=== PATIENT | male | born 1975 | race Caucasian/White ===

== ENCOUNTER 2022-11-26 17:49 | Inpatient (IN) ==
[2022-11-26 19:25] LABS: Appearance Urine Clear (Clear); Bilirubin Urine Negative (Negative); Blood Urine Negative (Negative); Color Urine Yellow; Glucose Urine UA Negative (Negative); Ketones Urine Negative (Negative); Leukocyte Esterase Urine Negative (Negative); Nitrite Urine Negative (Negative); Protein Urine Negative (Negative); Urobilinogen Urine Negative (Negative); pH Urine 6.5 (4.5-7.5)
[2022-11-26 19:39] LABS: Basophils # (auto) 0.02 K/uL (0-0.2); Basophils % (auto) 0.2 %; Eosinophils # (auto) 0.06 K/uL (0-0.50); Eosinophils % (auto) 0.6 %; Hematocrit (blood only) 40.3 % (42.0-52.0); Hemoglobin 13.7 g/dl (14.0-18.0); Immature Granulocytes # (auto) 0.04 K/uL (0.01-0.20); Immature Granulocytes % (auto) 0.4 %; Lymphocytes # (auto) 1.03 K/uL (1.2-3.4); Lymphocytes % (auto) 9.7 %; Mean Corpuscular Volume 88.2 fL (80.0-100.0); Mean Platelet Volume 9.8 fL (9.4-12.4); Monocytes # (auto) 0.85 K/uL (0.11-0.59); Neutrophils # (auto) 8.64 K/uL (1.40-6.50); Neutrophils % (auto) 81.1 %; Platelet Count 176 K/uL (130-400); RDW Coefficient of Variation 12.2 % (11.5-14.5); RDW Standard Deviation 38.9 fL (36.4-46.3); Red Blood Count 4.57 M/uL (4.70-6.10); White Blood Count 10.64 K/ul (4.8-10.8)
[2022-11-26 19:47] LABS: Albumin Globulin Ratio 1.7 (0.9-2); Albumin Level 4.8 gm/dl (3.4-5.0); BUN Creatinine Ratio 22.2 (10-20); Bilirubin,Total 1.3 mg/dl (0.2-1.0); Calcium 9.6 mg/dl (8.6-10.3); Creatinine Clr Calc Pharmacy 138.2 ml/min; Est GFR (African American) 122.7 ml/min; Est GFR (Non-African American) 105.8 ml/min; Globulin 2.8 gm/dl (2.5-4.0); Potassium 4.1 mmol/L (3.5-5.1); Total Protein 7.6 gm/dl (6.0-8.3)
--- NOTE | 2022-11-26 19:58 | Emergency Department Note ---
Impression & Plan Diverticulitis of colon with perforation, Abdominal pain ED Provider Note NAME: FORD KRAMER AGE: 47 SEX: M : 1975 ARRIVES VIA: Walk-In INFORMANT: Patient, ED PROVIDER(S): Paco Gastelum MD CHIEF COMPLAINT: Abdominal pain MEDICAL DECISION MAKING: Patient presents due to concern for abdominal David which began yesterday but has been persistent in the left lower quadrant. IV was established blood work was obtained the patient did receive IV morphine IV fluids and IV Zofran. CT abdomen pelvis does show concern for diverticulitis with associated contained microperforation which I did discuss with the on-call radiologist Dr. Norris. Given this concern patient was ordered Zosyn. The patient's vital signs and b lood work are reassuring at this time. I did discuss the patient's case with on-call general surgery Dr. Capellan who agreed with current plan of care and let something were to change she does not believe that the patient requires emergent surgery at this time. Patient's blood work shows a normal white counts mild anemia hemoglobin of 13.7 with normal platelet count. Kidney function is unremarkable. Mild elevation in bilirubin at 1.3. Other LFTs are unremarkable with normal lipase. I did speak with the on-call hospital service Dr. Pulido and the patient was admitted to the medicine service Prior /Outside records reviewed: None Differential diagnosis: Diverticulitis, kidney stone, constipation, UTI, enteritis, volvulus, bowel obstruction among others were considered Diagnostics, as interpreted by me: ECG: None Cardiac monitoring: An order was placed for continuous cardiac monitoring. The monitor shows a rate of 78 with sinus rhythm. Patient was placed on pulse oximetry Medical decision rules: None Imaging studies: See below I informally reviewed the patient's CT abdomen pelvis which does show perforated diverticulum. HPI: Patient presents due to concern for abdominal pain which began yesterday has been persistent located left lower quadrant. It is worse with palpation. No falls or trauma. Patient did take some Aleve but without significant improvement in symptoms. Patient did recently move and his daughter into college but denies any other strenuous or heavy lifting no obvious bulges or masses or hernias. Patient denies any testicular pain or swelling. No history of kidney stones and no prior history of any abdominal surgeries. Patient denies any chest pains or shortness of breath. Patient denies any associated nausea or vomiting. No blood in the urine or stool. PAST MEDICAL HISTORY: See Below PAST SURGICAL HISTORY: See Below SOCIAL HISTORY: See Below HOME MEDICATIONS: See Below ALLERGIES: See Below VITALS: See Below PHYSICAL EXAMINATION: GENERAL: NAD, non-toxic. EYE EXAM: Normal conjunctiva. PERRL, no anisocoria and EOM's grossly intact w/o pain. OROPHARYNX: Moist mucus membranes, grossly normal dentition. NECK: Supple, no nuchal rigidity, no adenopathy, non-tender. No signs of meningismus. FROM of the neck with good chin to chest and neck extension. No stridor. LUNGS: Clear to auscultation. Normal chest wall mechanics. HEART: NSR, no MRG. ABDOMEN: Abdomen soft, right lower quadrant and left lower quadrant pain, no ma sses. BACK: No CVA TTP. SKIN: No rashes and no bruising. UPPER EXTREMITIES: Upper extremities are grossly normal. LOWER EXTREMITIES: Grossly normal, no edema. NEURO EXAM: A&O x3, cranial nerves II-XII grossly intact, normal speech, moves all 4 extremities. Past Med/Surg History Medical History GERD (gastroesophageal reflux disease) Surgical History No significant past surgical history Family History Other Diabetes Dyslipidemia Hypertension Prostate cancer Social History Smoking Status: Never smoker Tobacco Type: Smokeless Tobacco (Dip or Chew) Do You Dip or Chew Tobacco: Yes; Tobacco Cessation Education Requested by Patient: No Hx Alcohol Use: No Hx Substance Use: No Preferred Language: Nepalese Communication Ability: Effective Counseling Director Required: No Beliefs That Will Affect Care: None marital status: Current Living Situation: Spouse current occupational status: employed Other Information That Helps Us Care for You: No Feels Safe at Home: Yes Safety Concerns: Feels Safe At This Time Assistive Devices: None Allergies Allergies Allergy/AdvReac Type Severity Reaction Status Date / Time No Known Allergies Allergy Unverified 11/26/22 21:23 Home Meds Home Medications Medication Instructions Recorded Confirmed naproxen sodium 220 mg tablet 220 mg PO Q12H PRN Pain 11/26/22 11/26/22 (Aleve) Results & Data (ED) Vital Signs Vital Signs - 24 hr 11/26/22 18:04 11/26/22 19:56 11/26/22 21:00 Temperature 36.6 C Temperature Source Temporal Artery Scan Pulse Rate 106 H Pulse Rate [Right Radial] Respiratory Rate 20 17 Respiratory Effort / Characteristics Non-Labored Non-Labored Respiratory Depth Normal Normal Respiratory Pattern Regular Blood Pressure 145/86 H Blood Pressure [Left Arm] Blood Pressure Mean 105 Blood Pressure Mean [Left Arm] Pulse Oximetry 95 96 Oxygen Delivery Method Room Air Room Air Room Air Sepsis Recent Fever Within 48 Hours No Sepsis New/Unexplained Change in Mental Status No Sepsis Action Taken by Nursing No Action Required 11/26/22 21:31 Temperature Temperature Source Pulse Rate Pulse Rate [Right Radial] 97 H Respiratory Rate 16 Respiratory Effort / Characteristics Respiratory Depth Respiratory Pattern Blood Pressure Blood Pressure [Left Arm] 139/87 Blood Pressure Mean Blood Pressure Mean [Left Arm] 104 Pulse Oximetry 93 Oxygen Delivery Method Room Air Sepsis Recent Fever Within 48 Hours Sepsis New/Unexplained Change in Mental Status Sepsis Action Taken by Prison Medications Current Medication List: was personally reviewed by me Laboratory Data Attestation: I reviewed the patient's lab results. 11/26/22 18:40 11/26/22 18:40 Lab Results 11/26/22 11/26/22 11/26/22 Range/Units 18:40 18:40 18:40 WBC 10.64 (4.8-10.8) K/ul RBC 4.57 L (4.70-6.10) M/uL Hgb 13.7 L (14.0-18.0) g/dl Hct 40.3 L (42.0-52.0) % MCV 88.2 (80.0-100.0) fL MCH 30.0 (25.0-34.0) pg MCHC 34.0 (32.0-36.0) g/dL RDW Std Deviation 38.9 (36.4-46.3) fL RDW Coeff of Joe 12.2 (11.5-14.5) % Plt Count 176 (130-400) K/uL MPV 9.8 (9.4-12.4) fL Immature Gran % (Auto) 0.4 % Neut % (Auto) 81.1 % Lymph % (Auto) 9.7 % [place] % (Auto) 8.0 % Eos % (Auto) 0.6 % Baso % (Auto) 0.2 % Neut # (Auto) 8.64 H (1.40-6.50) K/uL Lymph # (Auto) 1.03 L (1.2-3.4) K/uL [place] # (Auto) 0.85 H (0.11-0.59) K/uL Eos # (Auto) 0.06 (0-0.50) K/uL Baso # (Auto) 0.02 (0-0.2) K/uL Immature Gran # (Auto) 0.04 (0.01-0.20) K/uL Sodium 137 (136-145) mmol/L Potassium 4.1 (3.5-5.1) mmol/L Chloride 100 (98-107) mmol/L Carbon Dioxide 29 (21-32) mmol/L Anion Gap 8 (3-11) BUN 18 (6-23) mg/dl Creatinine 0.81 (0.6-1.4) mg/dl Est Cr Clr Drug Dosing 138.2 ml/min Est GFR ( Amer) 122.7 ml/min Est GFR (Non-Af Amer) 105.8 ml/min BUN/Creatinine Ratio 22.2 H (10-20) Glucose 92 (70-99(Fasting)) mg/dl Lactate 1.3 (0.4-2.0) mmol/L Calcium 9.6 (8.6-10.3) mg/dl Magnesium 1.9 (1.7-2.4) mg/dl Total Bilirubin 1.3 H (0.2-1.0) mg/dl AST 14 (13-39) U/L ALT 21 (7-52) U/L Alkaline Phosphatase 58 (34-104) U/L Total Protein 7.6 (6.0-8.3) gm/dl Albumin 4.8 (3.4-5.0) gm/dl Globulin 2.8 (2.5-4.0) gm/dl Albumin/Globulin Ratio 1.7 (0.9-2) Lipase 31 (11-82) U/L Administered Medications Enoxaparin Sodium (Enoxaparin Inj 40 Mg/0.4 Ml Syr) 40 mg SQ QAM ARABELLA Stop: 12/27/22 08:59 Last Admin: 11/27/22 09:50 Dose: 40 mg Documented By: RISHABH Acetaminophen (Ofirmev) 1,000 mg in 100 mls @ 400 mls/hr IV Q8H PRN PRN Reason: fever/pain Stop: 11/29/22 23:10 Last Infusion: 11/27/22 02:09 Dose: 0 mls/hr Documented By: Admin: 11/27/22 01:22 Dose: 400 mls/hr Documented By: LENNY Piperacillin Sod/Tazobactam (Sod 4.5 gm/ Dextrose) 120 mls @ 30 mls/hr IV Q8H [facility]; Protocol Stop: 12/07/22 03:59 Last Admin: 11/27/22 12:53 Dose: 30 mls/hr Documented By: Infusion: 11/27/22 07:50 Dose: 0 mls/hr Documented By: Admin: 11/27/22 03:09 Dose: 30 mls/hr Documented By: LENNY Dextrose/Sodium Chloride (D5w And Nss) 1,000 mls @ 100 mls/hr IV .Q10H ARABELLA Stop: 12/27/22 07:59 Last Admin: 11/27/22 09:49 Dose: 100 mls/hr Documented By: RISHABH Pantoprazole Sodium 40 mg/ (Syringe) 10 mls @ 5 mls/min IV DAILY@1100 ARABELLA Stop: 12/27/22 10:59 Last Admin: 11/27/22 09:49 Dose: 5 mls/min Documented By: RISHABH Ketorolac Tromethamine (Ketorolac Tromethamine 15 Mg/Ml Vial) 15 mg IV Q6H PRN PRN Reason: Pain Stop: 12/01/22 23:10 Last Admin: 11/27/22 09:49 Dose: 15 mg Documented By: RISHABH Discontinued Medications Hydromorphone HCl (Hydromorphone Inj 0.5 Mg/0.5 Ml Syr) 0.5 mg IV Q4H PRN PRN Reason: Pain Stop: 12/11/22 02:22 Last Admin: 11/27/22 10:27 Dose: 0.5 mg Documented By: RISHABH Sodium Chloride (Nss 1000ml) 500 mls @ 999 mls/hr IV .Q31M ONE Stop: 11/26/22 21:20 Last Infusion: 11/26/22 21:46 Dose: 999 mls/hr Documented By: Admin: 11/26/22 21:12 Dose: 999 mls/hr Documented By: PAULINE Piperacillin Sod/Tazobactam Sod (Zosyn) 4.5 gm in 120 mls @ 240 mls/hr IV NOW ONE Stop: 11/26/22 21:37 Last Infusion: 11/26/22 22:06 Dose: 240 mls/hr Documented By: Admin: 11/26/22 21:31 Dose: 240 mls/hr Documented By: PAULINE Dextrose/Sodium Chloride (D5w And Nss) 1,000 mls @ 100 mls/hr IV .Q10H ONE Stop: 11/27/22 07:53 Last Infusion: 11/27/22 09:56 Dose: 0 mls/hr Documented By: Admin: 11/26/22 22:39 Dose: 100 mls/hr Documented By: PAULINE Ioversol (Optiray 320 100ml) 90 ml IV ONCE ONE Stop: 11/26/22 20:10 Last Admin: 11/26/22 20:09 Dose: 90 ml Documented By: LEEANNA Ketorolac Tromethamine (Ketorolac Tromethamine 15 Mg/Ml Vial) 15 mg IV NOW ONE Stop: 11/26/22 23:06 Last Admin: 11/26/22 23:30 Dose: 15 mg Documented By: CALLY Morphine Sulfate (Morphine Sulfate 10 Mg/Ml Carp/Vial) 6 mg IV NOW STA Stop: 11/26/22 20:50 Last Admin: 11/26/22 21:13 Dose: 6 mg Documented By: PAULINE Ondansetron HCl (Ondansetron Inj 2 Mg/Ml 2 Ml Vial) 4 mg IV NOW STA Stop: 11/26/22 20:51 Last Admin: 11/26/22 21:13 Dose: 4 mg Documented By: PAULINE Imaging Data Radiologist's Impression: Abdomen/Pelvis CT 11/26/22 18:32 CR Exam(s): CT ABDOMEN + PELVIS With Contrast IV Amt: 90 ml optiray 320 EXAM: CT Abdomen and Pelvis With Intravenous Contrast CLINICAL HISTORY: Reason for exam: LLQ abd pain. TECHNIQUE: Axial computed tomography images of the abdomen and pelvis with intravenous contrast. Automated exposure control was utilized for the study. A dose lowering technique was utilized adhering to the principles of ALARA. CONTRAST: Patient received 90 ml optiray 320 of IV contrast COMPARISON: None. FINDINGS: Lung bases: Unremarkable. No mass. No consolidation. ABDOMEN: Liver: Unremarkable. No mass. Gallbladder and bile ducts: Unremarkable. No calcified stones. No ductal dilation. Pancreas: Unremarkable. No mass. No ductal dilation. Spleen: Unremarkable. No splenomegaly. Adrenals: Unremarkable. No mass. Kidneys and ureters: Parapelvic cysts in the left kidney. No hydronephrosis. Stomach and bowel: Acute diverticulitis of the descending colon with trace adjacent pneumoperitoneum compatible with perforation. No obstruction. PELVIS: Appendix: No findings to suggest acute appendicitis. Bladder: Unremarkable. No mass. Reproductive: Unremarkable as visualized. ABDOMEN and PELVIS: Intraperitoneal space: See above. Bones/joints: Degenerative change of the spine. No acute fracture. No dislocation. Soft tissues: Unremarkable. Vasculature: Unremarkable. No abdominal aortic aneurysm. Lymph nodes: Unremarkable. No enlarged lymph nodes. IMPRESSION: Acute diverticulitis of the descending colon with trace adjacent pneumoperitoneum compatible with perforation. Communications: Call Doctor Pneumoperitoneum, new or unexpected Electronically signed by: Azael Norris MD 11/26/22 21:01 PM Discharge Plan Visit Data Chief Complaint: Abdominal Pain Stated Complaint: ABD PAIN ED Provider: Paco Gastelum Discharge Problem: Diverticulitis of colon with perforation, Abdominal pain Patient Disposition: Admitted As Inpatient Discharge Instructions Interventions: ED Discharge Assessment Last Done: 11/27/22 00:59
[2022-11-26] MEDS ORDERED: OPTIRAY 320 100ml IV ONE (20:09)
[2022-11-26] MEDS ORDERED: MoRPHine SULFATE 10 MG/ML CARP/VIAL IV STA (20:49)
[2022-11-26] MEDS ORDERED: ONDANSETRON INJ 2 MG/ML 2 ML VIAL IV STA (20:50)
[2022-11-26] MEDS ORDERED: SODIUM CHLORIDE 0.9% 1000ML 500 ML IV ONE (20:50)
--- NOTE | 2022-11-26 21:02 | CT Scan Report ---
Exam(s): CT ABDOMEN + PELVIS With Contrast IV Amt: 90 ml optiray 320 EXAM: CT Abdomen and Pelvis With Intravenous Contrast CLINICAL HISTORY: Reason for exam: LLQ abd pain. TECHNIQUE: Axial computed tomography images of the abdomen and pelvis with intravenous contrast. Automated exposure control was utilized for the study. A dose lowering technique was utilized adhering to the principles of ALARA. CONTRAST: Patient received 90 ml optiray 320 of IV contrast COMPARISON: None. FINDINGS: Lung bases: Unremarkable. No mass. No consolidation. ABDOMEN: Liver: Unremarkable. No mass. Gallbladder and bile ducts: Unremarkable. No calcified stones. No ductal dilation. Pancreas: Unremarkable. No mass. No ductal dilation. Spleen: Unremarkable. No splenomegaly. Adrenals: Unremarkable. No mass. Kidneys and ureters: Parapelvic cysts in the left kidney. No hydronephrosis. Stomach and bowel: Acute diverticulitis of the descending colon with trace adjacent pneumoperitoneum compatible with perforation. No obstruction. PELVIS: Appendix: No findings to suggest acute appendicitis. Bladder: Unremarkable. No mass. Reproductive: Unremarkable as visualized. ABDOMEN and PELVIS: Intraperitoneal space: See above. Bones/joints: Degenerative change of the spine. No acute fracture. No dislocation. Soft tissues: Unremarkable. Vasculature: Unremarkable. No abdominal aortic aneurysm. Lymph nodes: Unremarkable. No enlarged lymph nodes. IMPRESSION: Acute diverticulitis of the descending colon with trace adjacent pneumoperitoneum compatible with perforation. Communications: Call Doctor Pneumoperitoneum, new or unexpected Electronically signed by: Azael Norris MD 11/26/22 21:01 PM
[2022-11-26] MEDS ORDERED: PIPERACILLIN/TAZOBACTAM 4.5 GM/120 ML BAG IV ONE (21:08)
[2022-11-26 21:45] LABS: Magnesium 1.9 mg/dl (1.7-2.4)
--- NOTE | 2022-11-26 21:46 | History & Physical Report ---
Date of Service November 26, 2022 Assessment & Plan (1) Diverticulitis of colon with perforation: (2) Abdominal pain: Plan: Patient is a 47-year-old male without significant past medical history presented ER today with complaint of abdominal pain x 1 day. In ER afebrile, P: 106, BP stable. No leukocytosis. Lactate WNL CT ABD/PELVIS: Acute diverticulitis of the descending colon with trace adjacent pneumoperitoneum compatible with perforation. In ER given 500ml NSS, Zosyn, Morphine General surgery consult Further assessment and plan per Dr Pulido. See addendum. History of Present Illness Chief Complaint: abdominal pain Primary Care Provider: Dr. Oglesby Patient is a 47-year-old male without significant past medical history presented ER today with complaint of abdominal pain x 1 day. Patient states last night started with left lower quadrant abdominal pain described as burning. He reports pain has worsened. Denies any radiation of pain. Tried OTC NSAID without relief. Denies any nausea, vomiting, diarrhea, constipation, fever/chills, diaphoresis, DALAL, dizziness, CP, SOB, cough, rhinorrhea, weakness, extremity edema, rashes, urinary symptoms. Denies history of colonoscopy. Allergies Allergy/AdvReac Type Severity Reaction Status Date / Time No Known Allergies Allergy Unverified 11/26/22 21:23 Home Medications Medication Instructions Recorded Confirmed Type naproxen sodium 220 mg tablet 220 mg PO Q12H PRN Pain 11/26/22 11/26/22 History (Aleve) Past Med/Surg History Medical History GERD (gastroesophageal reflux disease) Surgical History No significant past surgical history Family History Other Diabetes Dyslipidemia Hypertension Prostate cancer Social History Smoking Status: Never smoker Tobacco Type: Smokeless Tobacco (Dip or Chew) Do You Dip or Chew Tobacco: Yes; Tobacco Cessation Education Requested by Patient: No Hx Alcohol Use: No Hx Substance Use: No Preferred Language: Occitan Communication Ability: Effective 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 Beliefs That Will Affect Care: None marital status: Current Living Situation: Spouse current occupational status: employed Other Information That Helps Us Care for You: No Feels Safe at Home: Yes Safety Concerns: Feels Safe At This Time Assistive Devices: Glasses Review of Systems Review of Systems: All systems reviewed & are unremarkable except as noted in HPI & below Physical Exam Physical Exam: General: mild distress secondary to abdominal pain, WDWN Head: normocephalic, atraumatic Eyes: conjunctiva non-injected, anicteric ENT: normal inspection external ears, nose, mucous membranes moist Neck: supple, trachea midline Lungs: clear, no respiratory distress, no wheezing/rhonchi/rales CV: RRR, no murmur, no JVD, no pretibial edema Abd: normal BS, soft, +tenderness LLQ with guarding Ext: no cyanosis, no calf tenderness Neuro: A&O x 3, no focal deficits noted, normal affect Skin: warm, dry Results & Data Results & Data Vital Signs (Past 12 Hours) Vital Signs Temp Pulse Pulse Resp BP BP Pulse Ox 11/26/22 21:31 97 H 16 139/87 93 11/26/22 21:00 17 96 11/26/22 19:56 11/26/22 18:04 36.6 C 106 H 20 145/86 H 95 O2 Del Method 11/26/22 21:31 Room Air 11/26/22 21:00 Room Air 11/26/22 19:56 Room Air 11/26/22 18:04 Room Air Laboratory Results Short CBC 11/26/22 Range/Units 18:40 WBC 10.64 (4.8-10.8) K/ul Hgb 13.7 L (14.0-18.0) g/dl Hct 40.3 L (42.0-52.0) % Plt Count 176 (130-400) K/uL BMP 11/26/22 18:40 Sodium 137 Potassium 4.1 Chloride 100 Carbon Dioxide 29 BUN 18 Creatinine 0.81 Glucose 92 Calcium 9.6 Liver Function 11/26/22 Range/Units 18:40 Total Bilirubin 1.3 H (0.2-1.0) mg/dl AST 14 (13-39) U/L ALT 21 (7-52) U/L Alkaline Phosphatase 58 (34-104) U/L Albumin 4.8 (3.4-5.0) gm/dl Urine 11/26/22 Range/Units Unknown Urine Color Yellow Urine Appearance Clear (Clear) Urine pH 6.5 (4.5-7.5) Ur Specific [place] 1.020 (1.000-1.030) Urine Protein Negative (Negative) Urine Glucose (UA) Negative (Negative) Diagnostic Findings Abdomen/Pelvis CT 11/26/22 18:32 CR Exam(s): CT ABDOMEN + PELVIS With Contrast IV Amt: 90 ml optiray 320 EXAM: CT Abdomen and Pelvis With Intravenous Contrast CLINICAL HISTORY: Reason for exam: LLQ abd pain. TECHNIQUE: Axial computed tomography images of the abdomen and pelvis with intravenous contrast. Automated exposure control was utilized for the study. A dose lowering technique was utilized adhering to the principles of ALARA. CONTRAST: Patient received 90 ml optiray 320 of IV contrast COMPARISON: None. FINDINGS: Lung bases: Unremarkable. No mass. No consolidation. ABDOMEN: Liver: Unremarkable. No mass. Gallbladder and bile ducts: Unremarkable. No calcified stones. No ductal dilation. Pancreas: Unremarkable. No mass. No ductal dilation. Spleen: Unremarkable. No splenomegaly. Adrenals: Unremarkable. No mass. Kidneys and ureters: Parapelvic cysts in the left kidney. No hydronephrosis. Stomach and bowel: Acute diverticulitis of the descending colon with trace adjacent pneumoperitoneum compatible with perforation. No obstruction. PELVIS: Appendix: No findings to suggest acute appendicitis. Bladder: Unremarkable. No mass. Reproductive: Unremarkable as visualized. ABDOMEN and PELVIS: Intraperitoneal space: See above. Bones/joints: Degenerative change of the spine. No acute fracture. No dislocation. Soft tissues: Unremarkable. Vasculature: Unremarkable. No abdominal aortic aneurysm. Lymph nodes: Unremarkable. No enlarged lymph nodes. IMPRESSION: Acute diverticulitis of the descending colon with trace adjacent pneumoperitoneum compatible with perforation. Communications: Call Doctor Pneumoperitoneum, new or unexpected Electronically signed by: Azael Norris MD 11/26/22 21:01 PM Supervising Physician Co-Signing Physician Notes IM ATTENDING : Patient seen and examined. History obtained from patient, family, and records. Preceding documentation by Ms. Maryan Cartwright PA-C reviewed. FINAL ASSESSMENT AND PLAN as follows : Complicated diverticulitis no sepsis for now N.p.o. [facility] General Surgery consult RE complicated diverticulitis (ER provider already in touch with Dr. Capellan who recommends medical management.) DVT prophylaxis. Lovenox subcu Full code Patient PCP is Dr. Suleiman Oglesby for [facility]. Patient case signed out to [facility] upper and bottom lacer hand (Dr. Keila Martell). Text document was generated using [employer] voice recognition software. It may contain grammatical or spelling errors. Kindly contact undersigned for clarification of any documentation item in question.
[2022-11-26] MEDS ORDERED: D5W AND NSS 1,000 ML IV ONE (21:54)
[2022-11-26] MEDS ORDERED: KETOROLAC TROMETHAMINE 15 MG/ML VIAL IV ONE (23:05)
[2022-11-26] MEDS ORDERED: LORazepam 2 MG/1 ML VIAL IV PRN (23:11)
[2022-11-26] MEDS ORDERED: KETOROLAC TROMETHAMINE 15 MG/ML VIAL IV PRN (23:11)
[2022-11-26] MEDS ORDERED: PROMETHAZINE HCL 12.5 MG in SODIUM CHLORIDE 0.9% 50 ML IV PRN (23:11)
[2022-11-27] MEDS: ACETAMINOPHEN 1,000 MG/100 ML VIAL IV PRN ×2 (01:22→16:02)
[2022-11-27] MEDS ORDERED: HYDROmorphone INJ 0.5 MG/0.5 ML SYR IV PRN ×2 (02:23→11:51)
[2022-11-27] MEDS: PIPERACILLIN/TAZOBACTAM 4.5 GM in DEXTROSE 5% 100 ML IV SCH ×3 (03:09→19:57)
[2022-11-27 06:51] LABS: Basophils # (auto) 0.02 K/uL (0-0.2); Basophils % (auto) 0.2 %; Eosinophils # (auto) 0.06 K/uL (0-0.50); Eosinophils % (auto) 0.6 %; Hematocrit (blood only) 37.2 % (42.0-52.0); Hemoglobin 12.4 g/dl (14.0-18.0); Immature Granulocytes # (auto) 0.06 K/uL (0.01-0.20); Immature Granulocytes % (auto) 0.6 %; Lymphocytes # (auto) 0.78 K/uL (1.2-3.4); Lymphocytes % (auto) 7.8 %; Mean Corpuscular Hemoglobin 29.6 pg (25.0-34.0); Mean Corpuscular Hgb Conc 33.3 g/dL (32.0-36.0); Mean Corpuscular Volume 88.8 fL (80.0-100.0); Mean Platelet Volume 9.8 fL (9.4-12.4); Monocytes # (auto) 0.91 K/uL (0.11-0.59); Monocytes % (auto) 9.1 %; Neutrophils % (auto) 81.7 %; Platelet Count 141 K/uL (130-400); RDW Coefficient of Variation 12.2 % (11.5-14.5); RDW Standard Deviation 39.8 fL (36.4-46.3); Red Blood Count 4.19 M/uL (4.70-6.10); White Blood Count 10.03 K/ul (4.8-10.8)
[2022-11-27 07:03] LABS: BUN Creatinine Ratio 16.1 (10-20); Calcium 8.7 mg/dl (8.6-10.3); Creatinine Clr Calc Pharmacy 127.2 ml/min; Est GFR (African American) 119.1 ml/min; Est GFR (Non-African American) 102.8 ml/min; Potassium 4.1 mmol/L (3.5-5.1)
--- NOTE | 2022-11-27 08:23 | Surgery Consultation ---
Date of Consultation November 27, 2022 Assessment & Plan (1) Diverticulitis of colon with perforation: (2) Abdominal pain: Plan 47 lisbet-old male with no significant past medical history or abdominal surgical history presented to ED with complaint of 1 day of left sided abdominal pain wh ich progressively worsened. Afebrile, hemodynamically stable, no leukocytosis. CT scan of abd/pelvis with IV contrast showing acute descending colon diverticulitis with microperforation. Plan: Recommend conservative management with : Bowel rest, IV fluids, IV antibiotics, pain management and antiemetics as needed okay for clear liquids later today encourage ambulation continue medical management will need colonoscopy in 6-8 weeks will need total course of [address] Hillman has seen and examined pt, agrees with above. Supervising Physician Co-Signing Physician Notes I have seen and examined the patient personally and agree with the above assessment and plan. In brief, he is under 1 day history of abdominal pain but is afebrile with no leukocytosis. CT scan demonstrated diverticulitis with microperforation. We will treat him conservatively with IV fluids, antibiotics, bowel rest. We will continue to follow while he is in the hospital. History of Present Illness Reason for Consultation: Diverticulitis with microperforation Requesting Physician: Feliberto Pulido MD Attending Physician: Timbo Head MD History of Present Illness [place] is a 47 year-old male with no significant past medical history presented to ED with complaint of left sided abdominal pain that began yesterday which progressed in severity. Denies associated fever, chills, nausea, vomiting, changes in bowel habits, diarrhea, constipation, or blood in stools. Has never had similar pain. No prior colonoscopy. Currently states pain is improving since being in hospital and is not as severe. No prior abdominal surgeries. Has never had diverticulitis before. ER work-up included labs which showed no leukocytosis. CT scan of abdomen and pelvis with IV Contrast showing acute diverticulitis of the descending colon with trace pneumoperitoneum. Afebrile, hemodynamically stable. Allergies Allergy/AdvReac Type Severity Reaction Status Date / Time No Known Allergies Allergy Unverified 11/26/22 21:23 Home Medications Medication Instructions Recorded Confirmed Type naproxen sodium 220 mg tablet 220 mg PO Q12H PRN Pain 11/26/22 11/26/22 History (Aleve) Patient History Medical History GERD (gastroesophageal reflux disease) Surgical History No significant past surgical history Family History Other Diabetes Dyslipidemia Hypertension Prostate cancer Social History Smoking Status: Never smoker Tobacco Type: Smokeless Tobacco (Dip or Chew) Do You Dip or Chew Tobacco: Yes; Tobacco Cessation Education Requested by Patient: No Hx Alcohol Use: No Hx Substance Use: No Preferred Language: Finnish Communication Ability: Effective 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 Beliefs That Will Affect Care: None marital status: Current Living Situation: Spouse current occupational status: employed Other Information That Helps Us Care for You: No Feels Safe at Home: Yes Safety Concerns: Feels Safe At This Time Assistive Devices: None Review of Systems Review of Systems: All systems reviewed & are unremarkable except as noted in HPI & below Physical Exam Constitutional: WD/WN, vitals as above cooperative; no acute distress and not ill appearing Respiratory: normal respiratory effort, lungs clear to auscultation Cardiovascular: RRR, no murmur, no edema Gastrointestinal (Abdomen): Inspection/Auscultation: abdomen normal to inspection; abdomen not distended Percussion/Palpation: + abdomen tender (left mid abdomen) and abdomen soft; no guarding, abdomen not rigid and abdomen not firm Skin: no rashes, warm and dry Psychiatric: A+Ox3, euthymic affect Results & Data Vital Signs (Past 12 Hours) Vital Signs Temp Pulse Pulse Resp BP Pulse Ox O2 Del Method 11/27/22 07:20 37.2 C 80 15 123/81 93 Room Air 11/27/22 01:15 37.6 C H 88 18 134/84 98 Room Air 11/26/22 23:31 89 11/26/22 23:40 92 H 18 140/89 93 Room Air 11/26/22 21:31 97 H 16 139/87 93 Room Air 11/26/22 21:00 17 96 Room Air Laboratory Results 11/27/22 11/27/22 11/26/22 Range/Units 06:25 06:25 Unknown WBC 10.03 (4.8-10.8) K/ul RBC 4.19 L (4.70-6.10) M/uL Hgb 12.4 L (14.0-18.0) g/dl Hct 37.2 L (42.0-52.0) % MCV 88.8 (80.0-100.0) fL MCH 29.6 (25.0-34.0) pg MCHC 33.3 (32.0-36.0) g/dL RDW Std Deviation 39.8 (36.4-46.3) fL RDW Coeff of Joe 12.2 (11.5-14.5) % Plt Count 141 (130-400) K/uL MPV 9.8 (9.4-12.4) fL Immature Gran % (Auto) 0.6 % Neut % (Auto) 81.7 % Lymph % (Auto) 7.8 % [place] % (Auto) 9.1 % Eos % (Auto) 0.6 % Baso % (Auto) 0.2 % Neut # (Auto) 8.20 H (1.40-6.50) K/uL Lymph # (Auto) 0.78 L (1.2-3.4) K/uL [place] # (Auto) 0.91 H (0.11-0.59) K/uL Eos # (Auto) 0.06 (0-0.50) K/uL Baso # (Auto) 0.02 (0-0.2) K/uL Immature Gran # (Auto) 0.06 (0.01-0.20) K/uL Sodium 138 (136-145) mmol/L Potassium 4.1 (3.5-5.1) mmol/L Chloride 103 (98-107) mmol/L Carbon Dioxide 30 (21-32) mmol/L Anion Gap 5 (3-11) BUN 14 (6-23) mg/dl Creatinine 0.87 (0.6-1.4) mg/dl Est Cr Clr Drug Dosing 127.2 ml/min Est GFR ( Amer) 119.1 ml/min Est GFR (Non-Af Amer) 102.8 ml/min BUN/Creatinine Ratio 16.1 (10-20) Glucose 121 H (70-99(Fasting)) mg/dl Lactate (0.4-2.0) mmol/L Calcium 8.7 (8.6-10.3) mg/dl Magnesium (1.7-2.4) mg/dl Total Bilirubin (0.2-1.0) mg/dl AST (13-39) U/L ALT (7-52) U/L Alkaline Phosphatase (34-104) U/L Total Protein (6.0-8.3) gm/dl Albumin (3.4-5.0) gm/dl Globulin (2.5-4.0) gm/dl Albumin/Globulin Ratio (0.9-2) Lipase (11-82) U/L Urine Color Yellow Urine Appearance Clear (Clear) Urine pH 6.5 (4.5-7.5) Ur Specific Mckenzie 1.020 (1.000-1.030) Urine Protein Negative (Negative) Urine Glucose (UA) Negative (Negative) Urine Ketones Negative (Negative) Urine Blood Negative (Negative) Urine Nitrite Negative (Negative) Urine Bilirubin Negative (Negative) Urine Urobilinogen Negative (Negative) Ur Leukocyte Esterase Negative (Negative) 11/26/22 11/26/22 11/26/22 Range/Units 18:40 18:40 18:40 WBC 10.64 (4.8-10.8) K/ul RBC 4.57 L (4.70-6.10) M/uL Hgb 13.7 L (14.0-18.0) g/dl Hct 40.3 L (42.0-52.0) % MCV 88.2 (80.0-100.0) fL MCH 30.0 (25.0-34.0) pg MCHC 34.0 (32.0-36.0) g/dL RDW Std Deviation 38.9 (36.4-46.3) fL RDW Coeff of Joe 12.2 (11.5-14.5) % Plt Count 176 (130-400) K/uL MPV 9.8 (9.4-12.4) fL Immature Gran % (Auto) 0.4 % Neut % (Auto) 81.1 % Lymph % (Auto) 9.7 % [place] % (Auto) 8.0 % Eos % (Auto) 0.6 % Baso % (Auto) 0.2 % Neut # (Auto) 8.64 H (1.40-6.50) K/uL Lymph # (Auto) 1.03 L (1.2-3.4) K/uL [place] # (Auto) 0.85 H (0.11-0.59) K/uL Eos # (Auto) 0.06 (0-0.50) K/uL Baso # (Auto) 0.02 (0-0.2) K/uL Immature Gran # (Auto) 0.04 (0.01-0.20) K/uL Sodium 137 (136-145) mmol/L Potassium 4.1 (3.5-5.1) mmol/L Chloride 100 (98-107) mmol/L Carbon Dioxide 29 (21-32) mmol/L Anion Gap 8 (3-11) BUN 18 (6-23) mg/dl Creatinine 0.81 (0.6-1.4) mg/dl Est Cr Clr Drug Dosing 138.2 ml/min Est GFR ( Amer) 122.7 ml/min Est GFR (Non-Af Amer) 105.8 ml/min BUN/Creatinine Ratio 22.2 H (10-20) Glucose 92 (70-99(Fasting)) mg/dl Lactate 1.3 (0.4-2.0) mmol/L Calcium 9.6 (8.6-10.3) mg/dl Magnesium 1.9 (1.7-2.4) mg/dl Total Bilirubin 1.3 H (0.2-1.0) mg/dl AST 14 (13-39) U/L ALT 21 (7-52) U/L Alkaline Phosphatase 58 (34-104) U/L Total Protein 7.6 (6.0-8.3) gm/dl Albumin 4.8 (3.4-5.0) gm/dl Globulin 2.8 (2.5-4.0) gm/dl Albumin/Globulin Ratio 1.7 (0.9-2) Lipase 31 (11-82) U/L Urine Color Urine Appearance (Clear) Urine pH (4.5-7.5) Ur Specific Mckenzie (1.000-1.030) Urine Protein (Negative) Urine Glucose (UA) (Negative) Urine Ketones (Negative) Urine Blood (Negative) Urine Nitrite (Negative) Urine Bilirubin (Negative) Urine Urobilinogen (Negative) Ur Leukocyte Esterase (Negative) Diagnostic Findings Exam(s): CT ABDOMEN + PELVIS With Contrast IV Amt: 90 ml optiray 320 EXAM: CT Abdomen and Pelvis With Intravenous Contrast CLINICAL HISTORY: Reason for exam: LLQ abd pain. TECHNIQUE: Axial computed tomography images of the abdomen and pelvis with intravenous contrast. Automated exposure control was utilized for the study. A dose lowering technique was utilized adhering to the principles of ALARA. CONTRAST: Patient received 90 ml optiray 320 of IV contrast COMPARISON: None. FINDINGS: Lung bases: Unremarkable. No mass. No consolidation. ABDOMEN: Liver: Unremarkable. No mass. Gallbladder and bile ducts: Unremarkable. No calcified stones. No ductal dilation. Pancreas: Unremarkable. No mass. No ductal dilation. Spleen: Unremarkable. No splenomegaly. Adrenals: Unremarkable. No mass. Kidneys and ureters: Parapelvic cysts in the left kidney. No hydronephrosis. Stomach and bowel: Acute diverticulitis of the descending colon with trace adjacent pneumoperitoneum compatible with perforation. No obstruction. PELVIS: Appendix: No findings to suggest acute appendicitis. Bladder: Unremarkable. No mass. Reproductive: Unremarkable as visualized. ABDOMEN and PELVIS: Intraperitoneal space: See above. Bones/joints: Degenerative change of the spine. No acute fracture. No dislocation. Soft tissues: Unremarkable. Vasculature: Unremarkable. No abdominal aortic aneurysm. Lymph nodes: Unremarkable. No enlarged lymph nodes. IMPRESSION: Acute diverticulitis of the descending colon with trace adjacent pneumoperitoneum compatible with perforation.
[2022-11-27] MEDS: D5W AND NSS 1,000 ML IV SCH ×2 (09:49→19:58)
[2022-11-27] MEDS: ENOXAPARIN INJ 40 MG/0.4 ML SYR SQ SCH (09:50)
[2022-11-27] MEDS ORDERED: PANTOprazole 40 MG in SYRINGE 0 ML IV SCH (11:00)
--- NOTE | 2022-11-27 11:04 | Electrocardiogram Report ---
Test Reason : Blood Pressure : / mmHG Vent. Rate : 101 BPM Atrial Rate : 101 BPM P-R Int : 166 ms QRS Dur : 100 ms QT Int : 328 ms P-R-T Axes : 049 009 019 degrees QTc Int : 425 ms Sinus tachycardia Otherwise normal ECG No previous ECGs available Confirmed by Dinesh Hi ([id number]) on 11/27/2022 11:03:55 AM Referred By: REFERRED SELF Confirmed By:Mike Hi
--- NOTE | 2022-11-27 12:49 | Hospitalist Progress Note ---
Date of Service November 27, 2022 Assessment & Plan (1) Diverticulitis of colon with perforation: Plan: Conservative measures. N.p.o. with IV fluids. IV antibiotics. Pain control measures. Appreciate surgery consultation and recommendations (2) GERD (gastroesophageal reflux disease): Plan: Parenteral Protonix therapy for now Plan To be determined. He may need surgery. Anticipate eventual discharge to home Admission and Anticipated Discharge Date Admission Date: November 26, 2022 Subjective Alert and oriented. He understands that we will be treating him with intravenous antibiotics and he will be kept n.p.o. with IV fluids for now. Case discussed with surgery. Continue Zosyn therapy. Continue pain management Review of Systems Review of Systems: Constitutional-no fever or chills ENT-no blurred vision, no double vision, no epistaxis, no sore throat Respiratory-no cough, no wheezing, no shortness of breath Cardiac-no palpitations, no chest pain, no syncope GI-left lower quadrant tenderness. No melena, no hematochezia -no urinary retention, no urinary incontinence, no dysuria, no hematuria Musculoskeletal-no joint pain, no muscle tenderness Skin-no bruising, no rashes, no pruritus Neuro-no isolated weakness, no paresthesia Psych-no depression, no anxiety Physical Exam Physical Exam: General-alert and oriented x3, no fevers, no chills HEENT-head atraumatic and normocephalic, pupils equal and reactive to light, extraocular muscles intact Neck-no lymphadenopathy or thyromegaly, trachea midline Chest-clear to auscultation percussion. No rales wheezing or rhonchi Cardiac-regular rate and rhythm, normal S1 and S2, no murmurs Abdomen-normal bowel sounds, nondistended, no hepatosplenomegaly. Tender in the left lower quadrant area without rebound or guarding Extremities-no cyanosis, clubbing, or edema Neuro-cranial nerves II through XII intact, motor and sensory function within normal limits, strength symmetrical , no focal deficits Psych-normal affect, normal mood Results & Data Results & Data Vital Signs (Past 12 Hours) Vital Signs Temp Pulse Resp BP Pulse Ox O2 Del Method 11/27/22 07:20 37.2 C 80 15 123/81 93 Room Air 11/27/22 01:15 37.6 C H 88 18 134/84 98 Room Air Laboratory Results 11/27/22 06:25 11/27/22 06:25 PG Care Time/CCT Total # of Minutes Spent Total Time Spent with Patient: Total time spent is greater than 50% in coordination of care (as documented) at patient's floor/unit and/or counseling patient: Coding Level of Care Code 44060 SUB INP/OBS CARE 350MIN Diagnoses Diverticulitis of colon with perforation K57.20 GERD (gastroesophageal reflux disease) K21.9
--- NOTE | 2022-11-27 14:09 | Communication Note ---
Date of Service: November 27, 2022 Patient was seen at bedside as a follow-up of diverticulitis of colon with perforation. Complete physical exam/assessment was done and answered all their questions. It was an error, patient was already seen by [facility] team upon my discussion with the nurse. Then I went back in the room and again informed the patient that a different physician will be following him while in the hospital and apologized for the inconvenience.
[2022-11-28] MEDS: ACETAMINOPHEN 1,000 MG/100 ML VIAL IV PRN (00:25)
[2022-11-28] MEDS: D5W AND NSS 1,000 ML IV SCH (04:11)
[2022-11-28] MEDS: PIPERACILLIN/TAZOBACTAM 4.5 GM in DEXTROSE 5% 100 ML IV SCH ×3 (04:11→20:05)
--- NOTE | 2022-11-28 06:53 | Surgery Progress Note ---
Date of Service November 28, 2022 Assessment & Plan (1) Diverticulitis of colon with perforation: (2) Abdominal pain: Plan 47 lisbet-old male with no significant past medical history or abdominal surgical history presented to ED with complaint of 1 day of left sided abdominal pain which progressively worsened. Afebrile, hemodynamically stable, no leukocytosis. CT scan of abd/pelvis with IV contrast showing acute descending colon diverticulitis with microperforation. Plan: Recommend conservative management with : Bowel rest, IV fluids, IV antibiotics, pain management and antiemetics as needed Continue clears encourage ambulation continue medical management will need colonoscopy in 6-8 weeks will need total course of 14 days of antibiotics Admission and Anticipated Discharge Date Admission Date: November 26, 2022 Subjective Feeling better today. Less abdominal pain. No nausea or vomiting. No fevers or chills Physical Exam Constitutional: cooperative; no acute distress and not ill appearing Gastrointestinal (Abdomen): Inspection/Auscultation: abdomen normal to inspection; abdomen not distended Percussion/Palpation: + abdomen tender (left mid abdomen) and abdomen soft; no guarding, abdomen not rigid and abdomen not firm Skin: no rashes, warm and dry Psychiatric: A+Ox3, euthymic affect Results & Data Vital Signs (Past 12 Hours) Vital Signs Temp Pulse Resp BP Pulse Ox O2 Del Method 11/27/22 22:45 Room Air 11/27/22 19:57 36.5 C 69 16 132/89 97 Room Air (2) Abdominal pain Abdominal location: left lower quadrant Qualified Code(s): R10.32 - Left lower quadrant pain
[2022-11-28] MEDS: ENOXAPARIN INJ 40 MG/0.4 ML SYR SQ SCH (07:47)
[2022-11-28 08:27] LABS: Basophils # (auto) 0.03 K/uL (0-0.2); Basophils % (auto) 0.4 %; Eosinophils % (auto) 1.5 %; Hematocrit (blood only) 36.5 % (42.0-52.0); Immature Granulocytes # (auto) 0.03 K/uL (0.01-0.20); Immature Granulocytes % (auto) 0.4 %; Lymphocytes # (auto) 0.73 K/uL (1.2-3.4); Lymphocytes % (auto) 10.6 %; Mean Corpuscular Hemoglobin 29.7 pg (25.0-34.0); Mean Corpuscular Hgb Conc 32.9 g/dL (32.0-36.0); Mean Corpuscular Volume 90.3 fL (80.0-100.0); Mean Platelet Volume 10.1 fL (9.4-12.4); Monocytes # (auto) 0.54 K/uL (0.11-0.59); Monocytes % (auto) 7.8 %; Neutrophils # (auto) 5.46 K/uL (1.40-6.50); Neutrophils % (auto) 79.3 %; Platelet Count 158 K/uL (130-400); RDW Coefficient of Variation 12.3 % (11.5-14.5); RDW Standard Deviation 40.5 fL (36.4-46.3); Red Blood Count 4.04 M/uL (4.70-6.10); White Blood Count 6.89 K/ul (4.8-10.8)
[2022-11-28 08:29] LABS: BUN Creatinine Ratio 13.3 (10-20); Calcium 8.8 mg/dl (8.6-10.3); Creatinine Clr Calc Pharmacy 147.6 ml/min; Est GFR (African American) 126.6 ml/min; Est GFR (Non-African American) 109.2 ml/min; Potassium 3.8 mmol/L (3.5-5.1)
[2022-11-28] MEDS ORDERED: ACETAMINOPHEN 325 MG TAB PO PRN (14:02)
--- NOTE | 2022-11-28 14:09 | Hospitalist Progress Note ---
Date of Service November 28, 2022 Assessment & Plan (1) Diverticulitis of colon with perforation: Plan: Improving. Now on clear liquid diet. Intravenous Zosyn day 2. Appreciate surgery consultation and recommendations. (2) GERD (gastroesophageal reflux disease): Plan: Stable. Continue Protonix therapy Plan He is improving. Hopefully home tomorrow, November 29, on oral antibiotic. Admission and Anticipated Discharge Date Admission Date: November 26, 2022 Subjective Improving. He is ambulating well now. Abdominal discomfort has nearly totally resolved. He is now on a clear liquid diet per surgery and IV fluids have been tapered down. Continue Zosyn, day 2. Eventual discharge to home on Augmentin. Hopefully tomorrow, November 29 Review of Systems Review of Systems: Constitutional-no fever or chills ENT-no blurred vision, no double vision, no epistaxis, no sore throat Respiratory-no cough, no wheezing, no shortness of breath Cardiac-no palpitations, no chest pain, no syncope GI-resolved left lower quadrant tenderness. No melena, no hematochezia -no urinary retention, no urinary incontinence, no dysuria, no hematuria Musculoskeletal-no joint pain, no muscle tenderness Skin-no bruising, no rashes, no pruritus Neuro-no isolated weakness, no paresthesia Psych-no depression, no anxiety Physical Exam Physical Exam: General-alert and oriented x3, no fevers, no chills HEENT-head atraumatic and normocephalic, pupils equal and reactive to light, extraocular muscles intact Neck-no lymphadenopathy or thyromegaly, trachea midline Chest-clear to auscultation percussion. No rales wheezing or rhonchi Cardiac-regular rate and rhythm, normal S1 and S2, no murmurs Abdomen-normal bowel sounds, nondistended, no hepatosplenomegaly. Tenderness in the left lower quadrant area has improved considerably Extremities-no cyanosis, clubbing, or edema Neuro-cranial nerves II through XII intact, motor and sensory function within normal limits, strength symmetrical , no focal deficits Psych-normal affect, normal mood Results & Data Results & Data Vital Signs (Past 12 Hours) Vital Signs Temp Pulse Resp BP Pulse Ox O2 Del Method 11/28/22 08:03 36.5 C 67 15 137/90 95 Room Air Laboratory Results 11/28/22 06:55 11/28/22 06:55 PG Care Time/CCT Total # of Minutes Spent Total Time Spent with Patient: Total time spent is greater than 50% in coordination of care (as documented) at patient's floor/unit and/or counseling patient: Coding Level of Care Code 96013 SUB INP/OBS CARE MIN Diagnoses Diverticulitis of colon with perforation K57.20 GERD (gastroesophageal reflux disease) K21.9
[2022-11-29] MEDS: PIPERACILLIN/TAZOBACTAM 4.5 GM in DEXTROSE 5% 100 ML IV SCH ×2 (04:55→12:30)
[2022-11-29 07:06] LABS: Basophils # (auto) 0.03 K/uL (0-0.2); Basophils % (auto) 0.6 %; Eosinophils # (auto) 0.13 K/uL (0-0.50); Eosinophils % (auto) 2.6 %; Hematocrit (blood only) 33.8 % (42.0-52.0); Hemoglobin 11.6 g/dl (14.0-18.0); Immature Granulocytes # (auto) 0.02 K/uL (0.01-0.20); Immature Granulocytes % (auto) 0.4 %; Lymphocytes % (auto) 15.9 %; Mean Corpuscular Hemoglobin 29.8 pg (25.0-34.0); Mean Corpuscular Hgb Conc 34.3 g/dL (32.0-36.0); Mean Corpuscular Volume 86.9 fL (80.0-100.0); Mean Platelet Volume 9.8 fL (9.4-12.4); Monocytes # (auto) 0.37 K/uL (0.11-0.59); Monocytes % (auto) 7.4 %; Neutrophils # (auto) 3.68 K/uL (1.40-6.50); Neutrophils % (auto) 73.1 %; Platelet Count 175 K/uL (130-400); RDW Coefficient of Variation 12.1 % (11.5-14.5); RDW Standard Deviation 38.5 fL (36.4-46.3); Red Blood Count 3.89 M/uL (4.70-6.10); White Blood Count 5.03 K/ul (4.8-10.8)
[2022-11-29 07:30] LABS: Creatinine Clr Calc Pharmacy 138.3 ml/min; Est GFR (African American) 123.3 ml/min; Est GFR (Non-African American) 106.4 ml/min; Potassium 3.9 mmol/L (3.5-5.1)
[2022-11-29] MEDS: ENOXAPARIN INJ 40 MG/0.4 ML SYR SQ SCH (08:40)
[2022-11-29] MEDS ORDERED: PANTOprazole 40 MG TAB PO SCH (09:00)
--- NOTE | 2022-11-29 10:05 | Surgery Progress Note ---
Date of Service November 29, 2022 Assessment & Plan (1) Diverticulitis of colon with perforation: Plan: Doing well. Can advance diet. Okay from my standpoint for discharge on oral antibiotics. Follow-up with [facility] surgeons in the next 2 to 3 weeks Admission and Anticipated Discharge Date Admission Date: November 26, 2022 Subjective Patient seen. Feeling great would like to go home. No pain whatsoever Physical Exam Constitutional: WD/WN, vitals as above no acute distress and not ill appearing Eyes: PERRL, conjunctivae normal, anicteric sclerae EOM intact bilaterally ENMT: external ear and nose normal, oropharynx normal Ears: no hearing impairment Neck: trachea midline, no thyromegaly Respiratory: normal respiratory effort; no respiratory distress and does not use accessory muscles Cardiovascular: Rate/Rhythm: regular rate and regular rhythm Gastrointestinal (Abdomen): normal bowel sounds, soft, nontender, no hepatosplenomegaly No left lower quadrant or suprapubic tenderness Skin: no rashes, warm and dry Psychiatric: Orientation: alert, oriented x 3 and cooperative Results & Data Vital Signs (Past 12 Hours) Vital Signs Temp Pulse Resp BP Pulse Ox O2 Del Method 11/29/22 07:30 37.0 C 61 16 134/84 94 Room Air 11/28/22 23:30 Room Air PG Care Time/CCT Total # of Minutes Spent Total Time Spent with Patient: Total time spent is greater than 50% in coordination of care (as documented) at patient's floor/unit and/or counseling patient: Coding Level of Care Code 26326 SUB INP/OBS CARE 2/35MIN Diagnoses Diverticulitis of colon with perforation K57.20
--- NOTE | 2022-11-29 12:26 | Discharge Summary ---
Date of Service November 29, 2022 Admission HPI Per Admitting Provider Patient is a 47-year-old male without significant past medical history presented ER today with complaint of abdominal pain x 1 day. Patient states last night started with left lower quadrant abdominal pain described as burning. He reports pain has worsened. Denies any radiation of pain. Tried OTC NSAID without relief. Denies any nausea, vomiting, diarrhea, constipation, fever/chills, diaphoresis, DALAL, dizziness, CP, SOB, cough, rhinorrhea, weakness, extremity edema, rashes, urinary symptoms. Denies history of colonoscopy. Principal Diagnosis Acute sigmoid diverticulitis and with microperforation Discharge Exam General-alert and oriented x3, no fevers, no chills HEENT-head atraumatic and normocephalic, pupils equal and reactive to light, extraocular muscles intact Neck-no lymphadenopathy or thyromegaly, trachea midline Chest-clear to auscultation percussion. No rales wheezing or rhonchi Cardiac-regular rate and rhythm, normal S1 and S2, no murmurs Abdomen-normal bowel sounds, nondistended, no hepatosplenomegaly. Tenderness in the left lower quadrant area has improved considerably Extremities-no cyanosis, clubbing, or edema Neuro-cranial nerves II through XII intact, motor and sensory function within normal limits, strength symmetrical , no focal deficits Psych-normal affect, normal mood Discharge Data Allergies Allergy/AdvReac Type Severity Reaction Status Date / Time No Known Allergies Allergy Unverified 11/26/22 21:23 Consultations 11/26/22 21:14 ED Decision to Admit Stat 11/27/22 01:19 Consult General Surgery Routine Ordered Studies 11/26/22 18:32 CT abd pelvis IV con only Stat Hospital Course (1) Diverticulitis of colon with perforation: He continues to improve. Diet has been advanced. He has been treated with intravenous Zosyn daily while hospitalized. He will be discharged on oral Augmentin for 10 more days. General surgery consultation and recommendations appreciated (2) GERD (gastroesophageal reflux disease): Stable. Continue Protonix therapy Plan Home today, November 29. Continue oral Augmentin for 10 more days. He will return to work Thursday on a limited basis for 1 week he is improving. Hopefully home tomorrow, November 29, on oral antibiotic. Total Time Total Time Spent Total Time Spent (In Minutes): 45-minute Discharge Plan Discharge Items Patient Disposition: Home - Self-Care Reason For Visit: COMP DIVERTICULITIS Discharge Diagnosis: Sigmoid diverticulitis with microperforation Activity: Resume your previous activity Non-emergency contact: Surgeon Call non-emergency contact if: your symptoms worsen Follow-up/Referrals: Montrell Hillman MD [Physician] - (follow up in 2-3 weeks) Suleiman Oglesby, DO [Primary Care Provider] - Diet: Low Fiber Addtl Attending Provider Instructions: You will need to schedule follow up with gastroenterology for an outpatient colonoscopy in 6-8 weeks. Follow-up with general surgery, Dr. Montrell Hillman, in 2 to 3 weeks Pending Studies at Discharge: No Stand-Alone Forms: My [employer], Work/School Release, Smoking Cessation Medications and DC Order Prescriptions: New amoxicillin-pot clavulanate 875-125 mg tablet 1 tab PO BID Qty: 20 0RF Continued naproxen sodium [Aleve] 220 mg Tablet 220 mg PO Q12H PRN (Reason: Pain) Discharge Orders: Discharge Order (Routine); Ordered 11/29/22 Ordered By: Timbo Head Admission Data Admit Date/Time: 11/26/22 23:09 Attending Provider: Timbo Head Admit Provider: Feliberto Pulido Primary Care Provider: Suleiman Oglesby Other Providers: Mary Capellan ; Shahla Huerta Coding Level of Care Code 18091 INP/OBS DISCH >30 MIN Diagnoses Diverticulitis of colon with perforation K57.20 GERD (gastroesophageal reflux disease) K21.9
== END 2022-11-29 13:51 | disposition home or self-care (01) | DRG 392 ==
LOC: ED 17:49 → SUATTDRO 23:09 → 3N 23:09